=== PATIENT | male | born 1975 | race Caucasian/White ===

== ENCOUNTER 2017-01-28 10:20 | Emergency (ER) | payer BC ==
[2017-01-28 11:53] VITALS: BP 119/49
--- NOTE | 2017-01-28 12:58 | UC ---
Ear Complaint HPI - HPI Summary HPI Summary: 41 male presents to [facility] with complaints right ear pain and drainage. States the ear pain began 2 weeks ago and the drainage began 2-3 days ago. Patient states the drainage is green in color. Tried using old ear drops unknown name, without relief. Denies fever/chills, nausea, hearing loss. No other complaints. Hx of ear infections and had tubes as a child. No other complaints. No PMHx. - History of Current Complaint Chief Complaint: UCEar Stated Complaint: RIGHT EAR COMPLAINT Time Seen by Provider: 01/28/17 12:02 Hx Obtained From: Patient Onset/Duration: Sudden Onset, Lasting Weeks, Still Present, Worse Since Severity Initially: Mild Severity Currently: Moderate Pain Intensity: 3 Pain Scale Used: 0-10 Numeric Aggravating Factors: Nothing Alleviating Factors: Nothing Associated Signs/Symptoms: Positive: Discharge - Allergies/Home Medications Allergies/Adverse Reactions: Allergies Allergy/AdvReac Type Severity Reaction Status Date / Time No Known Allergies Allergy Verified 01/28/17 11:53 Home Medications: Home Medications Sertraline* [Zoloft*] 150 mg PO DAILY 01/28/17 [History Confirmed 01/28/17] PMH/Surg Hx/FS Hx/Imm Hx - Additional Past Medical History Additional PMH: Denies PMHx other than A fib - Surgical History Surgical History: Yes Surgery Procedure, Year, and Place: DEVIATED SEPTUM - Family History Known Family History: Positive: None - Social History Alcohol Use: None Substance Use Type: None Smoking Status (MU): Never Smoked Tobacco Type: Smokeless Tobacco Amount Used/How Often: 2 bags a week - Immunization History Most Recent Influenza Vaccination: none Vaccination Up to Date: Yes Review of Systems Constitutional: Negative ENT: Ear Ache - with discharge Respiratory: Negative Cardiovascular: Negative Neurological: Negative All Other Systems Reviewed And Are Negative: Yes Physical Exam Triage Information Reviewed: Yes Appearance: Well-Appearing, No Pain Distress, Well-Nourished Vital Signs: Initial Vital Signs Temp 97.5 F 01/28/17 11:47 Pulse 81 01/28/17 11:47 Resp 17 01/28/17 11:47 BP 119/49 01/28/17 11:47 Pulse Ox 98 01/28/17 11:47 Vital Signs Reviewed: Yes Eyes: Positive: Conjunctiva Clear ENT: Positive: Hearing grossly normal, Pharynx normal, TMs normal - EAC right edematous, erythema with vibrant green purulent discharge, Other - non tender with palpation of mastoid or tragus. Negative: TM bulging, TM dull, TM red - scarring to left and right TM noted from tubes as child Neck: Positive: Supple, Nontender, Other: - lymphadenopthy, right tonsillar Respiratory: Positive: Chest non-tender, Lungs clear, Normal breath sounds, No respiratory distress, No accessory muscle use Cardiovascular: Positive: RRR, No Murmur, Pulses Normal Musculoskeletal: Positive: Strength Intact Neurological: Positive: Alert Skin Exam: Normal Ear Complaint Course/Dx - Course Course Of Treatment: culture of discharge obtained. will wait results. probable pseudomonas otits externa. will treat with ciprodex. follow up with pcp. aware of worsening signs/symptoms. no concern for other etiology at this time. - Differential Dx/Diagnosis Differential Diagnosis/HQI/PQRI: Foreign Body, Mastoiditis, Otitis Externa, Otitis Media, Perforated TM Provider Diagnoses: right otitis externa Discharge - Discharge Plan Condition: Stable Disposition: HOME Prescriptions: Ciproflox/Dexameth OTIC.SUSP* [Ciprodex OTIC.SUSP*] 4 drop RIGHT EAR BID #1 btl Patient Education Materials: Otitis Externa (ED) Referrals: Jose Chambers MD [Primary Care Provider] - Additional Instructions: Use prescribed drops as directed to help with infection. Do not stick anything into the ears. Ibuprofen for pain and inflammation. Do not submerge ears into water. Follow up with PCP. Any new or worsening symptoms please seek medical attention promptly.
== END 2017-01-28 13:06 | disposition home or self-care (01) ==
LOC: UCCORT 10:20
DX: H60.91 Unspecified otitis externa, right ear (principal)
CPT/HCPCS: 87070; 87077; 87186; 87205; 99212; G0463

== ENCOUNTER 2017-02-25 08:57 | Emergency (ER) | payer BC ==
[2017-02-25 09:14] VITALS: BP 133/82
[2017-02-25] MEDS ORDERED: predniSONE TAB* 20 MG PO ONE (09:17)
[2017-02-25] MEDS ORDERED: Albuterol/Ipratropium NEB.SOL* Albuterol 2.5 MG/Ipratropium 0.5 MG 3 ML INH ONE (09:17)
--- NOTE | 2017-02-25 10:18 | RAD ---
Indication: Chest tightness, wheezing. 2 views of the chest including dual energy PA views demonstrate no mediastinal shift. Heart is of normal size and configuration. Lung thorne appear clear. IMPRESSION: No active cardiopulmonary disease is noted.
--- NOTE | 2017-02-25 10:29 | UC ---
Respiratory Complaint HPI - HPI Summary HPI Summary: coughing and sleeping poorly for the past 2 days no fevers, chills or night sweats - History of Current Complaint Chief Complaint: UCRespiratory Stated Complaint: DIFFICULTY BREATHING Time Seen by Provider: 02/25/17 09:13 Hx Obtained From: Patient Onset/Duration: Sudden Onset, Lasting Days - 2, Still Present Timing: Constant Severity Initially: Moderate Severity Currently: Moderate Character: Cough: Nonproductive Aggravating Factors: Exertion, Deep Breaths, Recumbent Position Alleviating Factors: Nothing Associated Signs And Symptoms: Positive: Dyspnea, URI - Allergies/Home Medications Allergies/Adverse Reactions: Allergies Allergy/AdvReac Type Severity Reaction Status Date / Time No Known Allergies Allergy Verified 02/25/17 09:04 Home Medications: Home Medications Ranitidine TAB (NF) [Zantac TAB (NF)] 150 mg PO BID 02/25/17 [History Confirmed 02/25/17] PMH/Surg Hx/FS Hx/Imm Hx Previously Healthy: No Cardiovascular History: Other - tachycardia Other Cardiovascular History: Tachycardia GI/ History: Gastroesophageal Reflux Psychological History: Depression - Surgical History Surgical History: Yes Surgery Procedure, Year, and Place: DEVIATED SEPTUM - Family History Known Family History: Positive: None - Social History Occupation: Employed Full-time Lives: With Family Alcohol Use: None Substance Use Type: None Smoking Status (MU): Never Smoked Tobacco Type: Smokeless Tobacco Amount Used/How Often: 2 bags a week - Immunization History Most Recent Influenza Vaccination: none Vaccination Up to Date: Yes Review of Systems Constitutional: Negative Skin: Negative Eyes: Negative ENT: Negative Respiratory: Cough Cardiovascular: Negative Gastrointestinal: Negative Genitourinary: Negative Motor: Negative Neurovascular: Negative Musculoskeletal: Negative Neurological: Negative Psychological: Negative Is Patient Immunocompromised?: No All Other Systems Reviewed And Are Negative: Yes Physical Exam Triage Information Reviewed: Yes Appearance: Well-Appearing, No Pain Distress, Well-Nourished Vital Signs: Initial Vital Signs Temp 97.1 F 02/25/17 09:05 Pulse 76 02/25/17 09:05 Resp 16 02/25/17 09:05 BP 133/82 02/25/17 09:05 Pulse Ox 96 02/25/17 09:05 Vital Signs Reviewed: Yes Eye Exam: Normal Eyes: Positive: Conjunctiva Clear ENT Exam: Normal ENT: Positive: Normal ENT inspection, Hearing grossly normal, Pharynx normal, TMs normal, Uvula midline. Negative: Nasal congestion, Nasal drainage, Tonsillar swelling, Tonsillar exudate, Trismus, Muffled voice, Hoarse voice, Sinus tenderness Dental Exam: Normal Neck exam: Normal Neck: Positive: Supple, Nontender, No Lymphadenopathy Respiratory Exam: Normal Respiratory: Positive: Chest non-tender, No respiratory distress, No accessory muscle use, Wheezing Cardiovascular Exam: Normal Cardiovascular: Positive: RRR, No Murmur, Pulses Normal, Brisk Capillary Refill Musculoskeletal Exam: Normal Musculoskeletal: Positive: Strength Intact, ROM Intact, No Edema Neurological Exam: Normal Neurological: Positive: Alert, Muscle Tone Normal Psychological Exam: Normal Skin Exam: Normal UC Diagnostic Evaluation - Laboratory O2 Sat by Pulse Oximetry: 96 - Radiology Xray Interpretation: No Acute Changes Radiology Interpretation Completed By: ED Physician, Radiologist Re-Evaluation - Re-Evaluation First Eval Change: Improved - less wheeze increase air movement--- Respiratory Course/Dx - Course Course Of Treatment: continue prednisone and albuterol and zithromax if fails to improve or worsens follow with pcp - Differential Dx/Diagnosis Provider Diagnoses: Bronchitis with Bronchospasm Discharge - Discharge Plan Condition: Stable Disposition: HOME Prescriptions: Albuterol HFA INHALER* [Ventolin HFA Inhaler*] 2 puff INH Q4H PRN #1 mdi PRN Reason: cough/wheeze Azithromycin TAB* [Zithromax TAB (Z-BEREKET) 250 mg #6 tabs] 2 tab PO .TODAY, THEN 1 DAILY #1 bereket predniSONE TAB* [Deltasone TAB*] 20 mg PO DAILY #15 tab Patient Education Materials: How to Use a Metered-Dose Inhaler (ED), Acute Bronchitis (ED), Bronchospasm (ED) Referrals: Jose Chambers MD [Primary Care Provider] - 1 Week
== END 2017-02-25 10:38 | disposition home or self-care (01) ==
LOC: UCCORT 08:57
DX: J20.9 Acute bronchitis, unspecified (principal); R00.0 Tachycardia, unspecified; K21.9 Gastro-esophageal reflux disease without esophagitis; F32.9 Major depressive disorder, single episode, unspecified
CPT/HCPCS: 71020; 99212; A9270-GY; G0463; J7512

== ENCOUNTER 2019-06-10 08:58 | Emergency (ER) | payer BC, OTHER ==
[2019-06-10 09:54] VITALS: BP 136/94
--- NOTE | 2019-06-10 10:35 | UC ---
Back Pain HPI - HPI Summary HPI Summary: 43 yo , with 10 years of back pain, with awareness of flat cervical curve for all of his adult life. He states that he remotely had an xray of his spine, but states that this was years ago and he has not had a work up since then. He has had years of pain in the left neck and upper spine with no recall of injury. No radiation of pain to the arm. Pain with turning the neck to the right only No hand dysfunction, with normal statement processor strength. He has no change in gait, and has normal anal sphincter control, although he says that there are times when he leaks a little bit if urine if he is straining at stool. This is longstanidng. he does not use pain medications aside from occasional ibuprofe, has never done PT. Used to work out at the gym but stopped because it hurt too mnuch - History of Current Complaint Chief Complaint: UCBackPain Stated Complaint: MIDDLE BACK PAIN Time Seen by Provider: 06/10/19 10:34 Hx Obtained From: Patient Onset/Duration: Gradual Onset, Other - lasting years, worse in recent weeks. Timing: Constant Severity Initially: Mild Severity Currently: Moderate Pain Intensity: 4 Back Pain: Is Discrete @ - left trapezius and lef subscapular area. Character: Aching, Stiffness Aggravating Factor(s): Movement, Lifting - he has a hx of constonchondritis, and pain can also be present in the anterior chest. He has gone to the ER in the past and ruled out for GA, Cough Associated Signs And Symptoms: Positive: Negative - Risk Factors AAA Risk Factors: Hypertension TAD Risk Factors: Hypertension - Allergies/Home Medications Allergies/Adverse Reactions: Allergies Allergy/AdvReac Type Severity Reaction Status Date / Time No Known Allergies Allergy Verified 02/25/17 09:04 Home Medications: Home Medications Metoprolol Tartrate TAB* [Lopressor TAB*] 40 mg PO BID 09/14/15 [History Confirmed 06/10/19] Sertraline* [Zoloft*] 150 mg PO DAILY 01/28/17 [History Confirmed 06/10/19] Aspirin EC TAB* [Ecotrin EC Low Dose 81 MG*] 81 mg PO DAILY 06/10/19 [History Confirmed 06/10/19] Cyclobenzaprine TAB* [Flexeril 10 MG TAB*] 10 mg PO DAILY PRN #30 tab 06/10/19 [ Rx] Naproxen [Naproxen 500 mg tab] 500 mg PO BID PRN #30 tablet 06/10/19 [Rx] PMH/Surg Hx/FS Hx/Imm Hx Previously Healthy: Yes - obese Cardiovascular History: Hypertension - Surgical History Surgical History: Yes Surgery Procedure, Year, and Place: DEVIATED SEPTUM - Family History Known Family History: Positive: Cardiac Disease - mother had angina - Social History Occupation: Employed Full-time Alcohol Use: None Substance Use Type: None Smoking Status (MU): Heavy Every Day Tobacco Smoker Type: Smokeless Tobacco Amount Used/How Often: 1/2 bag daily Length of Time of Smoking/Using Tobacco: Since Age 17 - Immunization History Most Recent Influenza Vaccination: none Vaccination Up to Date: Yes Review of Systems All Other Systems Reviewed And Are Negative: Yes Constitutional: Positive: Negative Skin: Positive: Negative Eyes: Positive: Negative ENT: Positive: Negative Respiratory: Positive: Negative Cardiovascular: Positive: Chest Pain - dx costochondritis in the past Gastrointestinal: Positive: Negative Genitourinary: Positive: Negative Motor: Positive: Decreased ROM - in cervical spine Musculoskeletal: Positive: Arthralgia, Myalgia Neurological/Mental Status: Positive: Negative. Negative: Headache, Weakness, Paresthesia Psychological: Positive: Negative Is Patient Immunocompromised?: No Physical Exam Triage Information Reviewed: Yes Appearance: Well-Appearing, No Pain Distress Vital Signs: Initial Vital Signs Temp 98.2 F 06/10/19 09:46 Pulse 72 06/10/19 09:46 Resp 16 06/10/19 09:46 BP 136/94 06/10/19 09:46 Pulse Ox 98 06/10/19 09:46 Eye Exam: Normal ENT: Positive: Normal ENT inspection Neck exam: Other - Flat cervical spine with poor postural support, forward flexed at the neck. Neck: Positive: No Lymphadenopathy, Tenderness @ - left trapezius and paraspinal musculature. Respiratory: Positive: Lungs clear, Normal breath sounds, No respiratory distress, Other: - Tenderness at the sternoclaivicular joint and anterior chest wall. Cardiovascular: Positive: RRR, No Murmur Musculoskeletal Exam: Other - Normal gait. flat cervical curve limited rom in c spine with FF to 20 degrees, extension to 0 Tenderness in left clavicular sternal joint. Musculoskeletal: Positive: ROM Intact - at the left shoulder, ROM Limited @ - cervical spine., Other: - Lumbar spine with normal curve. Neurological Exam: Other - no pronator drift. 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 Psychological Exam: Normal Skin Exam: Normal Back Pain Course/Dx - Course Course Of Treatment: nsaid, muscle relaxant, and PT order. Discussed chronic cervical pain, with need to form a superintendent container terminal plan. Suggested a brief period of use of nsaid's, being cautious of the gi tract. He is advised to follow up with Dr. Chambers at the [facility] to form a detention approach and to decide if imaging is useful. - Differential Dx/Diagnosis Provider Diagnosis: Cervicalgia Discharge ED - Sign-Out/Discharge Documenting (check all that apply): Patient Departure All imaging exams completed and their final reports reviewed: No Studies - Discharge Plan Condition: Stable Disposition: HOME Prescriptions: Cyclobenzaprine TAB* [Flexeril 10 MG TAB*] 10 mg PO DAILY PRN #30 tab PRN Reason: Spasms Naproxen [Naproxen 500 mg tab] 500 mg PO BID PRN #30 tablet PRN Reason: Pain - Moderate Patient Education Materials: Cervical Strain (ED) Referrals: Jose Chambers MD [Primary Care Provider] - Additional Instructions: Your spinal structure has caused increased muscle spasm in the left neck. At this time, use naproxen 500mg twice daily WITH FOOD for control of pain. Stop use if you develop nausea or stomach upset. Use of muscle relaxant at night will help to relieve spasm. Begin physical therapy for upper back and neck strengthening. Follow up with Dr. Chambers in 3 to 4 weeks for follow up and to determine if imaging is necessary. - Billing Disposition and Condition Condition: STABLE Disposition: Home
== END 2019-06-10 11:40 | disposition home or self-care (01) ==
LOC: UCCORT 08:58
DX: M54.2 Cervicalgia (principal); E66.9 Obesity, unspecified; I10 Essential (primary) hypertension; F17.290 Nicotine dependence, other tobacco product, uncomplicated; Z79.82 Long term (current) use of aspirin
CPT/HCPCS: 99212; G0463